=== PATIENT | female | born 1965 | race American Indian/Alaskan Native ===

== ENCOUNTER 2021-05-01 07:17 | Outpatient (CLI) | payer BC ==
[2021-05-01 08:32] LABS: Chol/HDL Ratio 3.49 %
== END 2021-05-01 07:18 | disposition home or self-care (01) ==
LOC: LAB 07:17
PROVIDERS: ATTEND Internal Medicine
DX: E78.5 Hyperlipidemia, unspecified (principal)
CPT/HCPCS: 36415; 80061

== ENCOUNTER 2021-07-13 07:23 | Outpatient (CLI) | payer BC ==
--- NOTE | 2021-07-13 09:27 | XRay Report ---
RIGHT KNEE 2 VIEW(S) INDICATION / CLINICAL INFORMATION: PAIN IN RIGHT KNEE COMPARISON: None available. FINDINGS: BONES / JOINT(S): There is an osseous fragment along the superior aspect of the right tibial tuberosi ty.. This could be posttraumatic representing an avulsion fracture. This could be a chronic finding r elated to prior injury or Sanchez-Schlatter disease. The joint spaces are maintained. SOFT TISSUES: No significant abnormality. ADDITIONAL FINDINGS: None. Impression: There is a small ossification with lucency at the level of the tibial tuberosity. This could be postt raumatic. This could be a chronic finding related to prior injury or ossification lateral disease as a teen. If clinically warranted, MRI could be useful to further evaluate. Signer Name: Branden Lawson MD Signed: 07/13/2021 9:23 AM Workstation Name: [id number]
== END 2021-07-13 07:24 | disposition home or self-care (01) ==
LOC: XRAY 07:23
PROVIDERS: ATTEND Internal Medicine
DX: M25.561 Pain in right knee (principal)

== ENCOUNTER 2021-07-16 15:20 | Outpatient (CLI) | payer BC ==
--- NOTE | 2021-07-17 07:17 | Magnetic Resonance Report ---
MRI RIGHT KNEE WITHOUT CONTRAST INDICATION / CLINICAL INFORMATION: PAIN IN RIGHT KNEE. TECHNIQUE: Multiplanar, multisequence MR images were obtained. No contrast used. COMPARISON: None available. FINDINGS: ACL: No significant abnormality. PCL: No significant abnormality. DISTAL QUADRICEPS TENDON: No significant abnormality. PATELLAR TENDON: No significant abnormality. MEDIAL MENISCUS: Signal irregularity was complex tear in the posterior horn LATERAL MENISCUS: No significant abnormality. POSTEROLATERAL CORNER: No significant abnormality. MCL: Diffuse attenuation within the MCL with surrounding edema and fluid LCL: No significant abnormality. DISTAL IT BAND: No significant abnormality. PATELLOFEMORAL ALIGNMENT: No significant abnormality. ARTICULAR CARTILAGE: No significant chondrosis or articular cartilage defect. JOINT SPACE: No significant joint effusion or synovitis. No significant popliteal cyst. No intra-miguel cular bodies. BONES: No significant bone marrow edema. No fracture. No osseous lesion. SOFT TISSUES: No significant abnormality. ADDITIONAL FINDINGS: None. IMPRESSION: 1. Complex tears of the posterior horn the medial meniscus. 2. Diffuse attenuation within and surrounding the proximal MCL could represent grade 2 MCL sprain Signer Name: Kali Pitts MD Signed: 07/17/2021 7:12 AM Workstation Name: [id number]
== END 2021-07-16 15:21 | disposition home or self-care (01) ==
LOC: MRI 15:20
PROVIDERS: ATTEND Internal Medicine
DX: S83.231A Complex tear of medial meniscus, current injury, right knee, initial encounter (principal); X58.XXXA Exposure to other specified factors, initial encounter; Y93.89 Activity, other specified; Y92.89 Other specified places as the place of occurrence of the external cause; Y99.8 Other external cause status
CPT/HCPCS: 73721

== ENCOUNTER 2021-08-06 07:29 | Day surgery (SDC) | payer BC ==
[2021-08-06] MEDS ORDERED: LACTATED RINGERS 1,000 ML ONE (08:51)
[2021-08-06] MEDS ORDERED: LIDOCAINE MPF (2%) 20 MG/1 ML VIAL 5 ML ONE (09:10)
[2021-08-06] MEDS ORDERED: propofoL 200 MG/20 ML VIAL IV ONE (09:10)
[2021-08-06] MEDS ORDERED: fentaNYL 100 MCG/2 ML INJ ONE (09:10)
[2021-08-06] MEDS ORDERED: MIDAZOLAM 2 MG/2 ML INJ ONE (09:16)
[2021-08-06] MEDS ORDERED: CELECOXIB 200 MG CAP ONE (09:17)
[2021-08-06] MEDS ORDERED: ACETAMINOPHEN 500 MG TAB ONE (09:17)
[2021-08-06] MEDS ORDERED: HYDROmorphone 1 MG/1 ML INJ IV PRN (09:19)
[2021-08-06] MEDS ORDERED: ONDANSETRON 4 MG/2 ML INJ IV PRN (09:19)
[2021-08-06] MEDS ORDERED: ACETAMINOPHEN 500 MG TAB PO NR (09:20)
--- NOTE | 2021-08-06 09:20 | Anesthesia Day of Surgery ---
Anesthesia Day of Surgery - Day of Surgery Patient Examined: Yes Patient H&P Reviewed: Yes Patient is NPO: Yes
--- NOTE | 2021-08-06 09:21 | Anesthesia Consultation ---
Anesthesia Consult and Med Hx Date of service: 08/06/21 - Airway Anesthetic Teeth Evaluation: Good, Crowns ROM Head & Neck: Adequate Mental/Hyoid Distance: Adequate Mallampati Class: Class II Intubation Access Assessment: Good - Pre-Operative Health Status ASA Pre-Surgery Classification: ASA1 Proposed Anesthetic Plan: General - Pulmonary Hx Smoking: Yes (STOPPED X 4 YRS) Hx Sleep Apnea: No (ALVIN PRE SCREEN LOW RISK) - Cardiovascular System Hx Hypertension: No - Central Nervous System Hx Psychiatric Problems: No - Gastrointestinal Hx Gastroesophageal Reflux Disease: No - Hematic Hx Anemia: No Hx Sickle Cell Disease: No - Other Systems Hx Cancer: No Hx Obesity: No
[2021-08-06] MEDS ORDERED: ceFAZolin 1 GM VIAL ONE ×2 (09:52)
[2021-08-06] MEDS ORDERED: CELECOXIB 200 MG CAP PO NR (10:00)
[2021-08-06] MEDS ORDERED: MIDAZOLAM 2 MG/2 ML INJ IV NR (10:00)
[2021-08-06] MEDS ORDERED: LACTATED RINGERS 1,000 ML IV SCH (10:00)
[2021-08-06] MEDS ORDERED: KETOROLAC 30 MG/1 ML INJ ONE (10:02)
[2021-08-06] MEDS ORDERED: ONDANSETRON 4 MG/2 ML INJ ONE ×2 (10:02→12:47)
[2021-08-06] MEDS ORDERED: dexAMETHasone 20 MG/5 ML VIAL ONE (10:02)
[2021-08-06] MEDS ORDERED: LIDOCAINE (1%) 10 MG/1 ML VIAL 20 ML MDV ONE (10:11)
[2021-08-06] MEDS ORDERED: methylPREDNISolone ACETATE 40 MG/1 ML INJ ONE (10:11)
[2021-08-06] MEDS ORDERED: EPINEPHrine 30 MG/30 ML INJ IV ONE (10:12)
[2021-08-06] MEDS ORDERED: TRIAMCINOLONE 40 MG/1 ML INJ ONE (10:28)
[2021-08-06] MEDS ORDERED: HYDROmorphone 1 MG/1 ML INJ ONE (10:31)
[2021-08-06] MEDS ORDERED: SODIUM CHLORIDE 0.9% IRRIG SOLN 2000 ML IR ONE (10:39)
[2021-08-06] MEDS ORDERED: LIDOCAINE (1%) 10 MG/1 ML VIAL 20 ML MDV INFILTRATI ONE (10:40)
[2021-08-06] MEDS ORDERED: EPINEPHrine/PF 1 MG/1 ML INJ IV ONE (10:40)
[2021-08-06] MEDS ORDERED: TRIAMCINOLONE 40 MG/1 ML INJ IM ONE (10:40)
[2021-08-06] MEDS ORDERED: ONDANSETRON 4 MG/2 ML INJ IV ONE (10:50)
[2021-08-06] MEDS: HYDROmorphone 1 MG/1 ML INJ IV PRN ×2 (11:00→11:10)
[2021-08-06] MEDS ORDERED: HYDROcodone/ACETAMINOPHEN 5-325 MG TAB ONE (11:37)
[2021-08-06 11:47] VITALS: BP 115/74
--- NOTE | 2021-08-06 11:50 | Operative Report ---
Operative Report Operative Report: OPERATIVE REPORT PRE-OP diagnosis : Torn medial meniscus , RIGHT Knee Post-OP diagnosis : Posterior horn tear medial meniscus, RIGHT knee Surgeon: Maxi Hartley MD carpenter assistant installer: none Anesthesia: General with LMA Details of Operative Technique: The patient was brought from the same-day surgery holding area to the operating room where she underwent satisfactory general anesthesia utilizing an LMA. SHe was placed in the supine position and all pressure points were well-padded. The right leg was placed in the knee pollock and the left leg was placed in the well leg pollock. The extremity was then elevated and exsanguinated with an Esmarch bandage and the tourniquet was inflated to 300 mmHg. The knee was prepped and draped in the usual sterile fashion with ChloraPrep solution. A timeout was then called by the circulating nurse and once again the correct site was identified. Arthroscopy was carried out with an anterolateral approach. The patient was noted to have what appeared to be a chronic and unstable tear in the posterior horn of the medial meniscus in the avascular zone. This was a medium size tear but did not extend to the body of the meniscus. Anterior horn and body were normal. The articular cartilage in the medial compartment also appeared normal. Was minimal buildup of synovitis in the notch. The anterior and posterior cruciate ligaments were intact. The lateral condyle showed pristine articular surfaces for the femoral condyle and the tibial plateau. The lateral meniscus showed no tears whatsoever. The patellofemoral compartment also showed normal cartilage for the patella and the trochlear groove with normal patellofemoral tracking. There were no loose bodies. ARTHROMENISCECTOMY : Attention was then redirected to the medial compartment. Utilizing a series of meniscal brinda the torn portion of the medial meniscus was removed and the remaining rim was trimmed to a relatively normal and stable contour. This involved ablation of approximately 30% of the posterior horn. The knee was again probed and no further tears were noted. All arthroscopic fluid and debris was then removed with suction , and the Polaroid pictures were saved. Prior to closure the knee was injected with Kenalog 40 mg and lidocaine 1% 4 cc. The arthroscopic portals were then closed with individual 2-0 Vicryl subcuticular sutures. Steri-Strips were placed on the skin followed by an ABD pad which was secured with an Juan Carlos wrap. The patient was then awakened and taken to recovery room in excellent condition. Estimated blood loss: Negligible Drains : None Tourniquet time: 33 minutes
[2021-08-06] MEDS ORDERED: HYDROcodone/ACETAMINOPHEN 5-325 MG TAB PO PRN (12:00)
--- NOTE | 2021-08-06 19:01 | Post Anesthesia Evaluation ---
- Post Anesthesia Evaluation Patient Participated: Yes Airway Patent: Yes Stable Respiratory Function: Yes Nausea/Vomiting: No Temp > 96.8F: Yes Pain Manageable: Yes Adequeate Hydration: Yes Anesthesia Complications: No Block Receding Appropriately: Not Applicable Patient on Ventilator: No
== END 2021-08-06 13:17 | disposition home or self-care (01) ==
LOC: OR 07:29
PROVIDERS: ATTEND Orthopaedic Surgery
DX: S83.241A Other tear of medial meniscus, current injury, right knee, initial encounter (principal); E78.00 Pure hypercholesterolemia, unspecified; Z20.822 Contact with and (suspected) exposure to COVID-19; Z87.891 Personal history of nicotine dependence; Z98.890 Other specified postprocedural states; X58.XXXA Exposure to other specified factors, initial encounter; Y93.89 Activity, other specified; Y92.89 Other specified places as the place of occurrence of the external cause; Y99.8 Other external cause status
CPT/HCPCS: 29881; J0171; J0690; J1100; J1170; J2250; J2405; J2704; J3010; J3301; J3490; J7120; U0003; J1030; J1885

== ENCOUNTER 2021-09-18 11:43 | Outpatient (CLI) | payer BC ==
[2021-09-18 12:20] LABS: Basophils % (Auto) 0.4 % (0.0-1.8); Eosinophils # (Auto) 0.1 K/mm3 (0.0-0.4); Eosinophils % (Auto) 2.6 % (0.0-4.3); Hematocrit 42.4 % (30.3-42.9); Hemoglobin 14.1 gm/dl (10.1-14.3); Lymphocytes # (Auto) 2.1 K/mm3 (1.2-5.4); Lymphocytes % (Auto) 45.1 % (13.4-35.0); Mean Corpuscular HGB Conc 33 % (30-34); Mean Corpuscular Volume 96 fl (79-97); Monocytes # (Auto) 0.3 K/mm3 (0.0-0.8); Monocytes % (Auto) 7.5 % (0.0-7.3); Platelet Count 216 K/mm3 (140-440); Red Blood Count 4.42 M/mm3 (3.65-5.03); Red Cell Distribution Width 12.6 % (13.2-15.2)
[2021-09-18 13:02] LABS: Alanine Aminotransferase 21 units/L (7-56); Albumin 4.3 g/dL (3.9-5); Blood Urea Nitrogen 12 mg/dL (7-17); Calcium 8.9 mg/dL (8.4-10.2); Hemolysis Index 25
[2021-09-18 13:27] LABS: BUN/Creatinine Ratio 17
[2021-09-18 15:06] LABS: Chol/HDL Ratio 3.22 %; HDL Cholesterol 74 mg/dL (40-59); LDL Cholesterol,Direct 164 mg/dL (50-130)
== END 2021-09-18 11:44 | disposition home or self-care (01) ==
LOC: LAB 11:43
PROVIDERS: ATTEND Internal Medicine
DX: Z00.00 Encounter for general adult medical examination without abnormal findings (principal); Z13.1 Encounter for screening for diabetes mellitus; R53.83 Other fatigue; E78.5 Hyperlipidemia, unspecified; E55.9 Vitamin D deficiency, unspecified
CPT/HCPCS: 36415; 80053; 80061; 82306; 84443; 85025